=== PATIENT | female | born 1950 | race Caucasian/White ===

== ENCOUNTER 2016-09-14 08:23 | Day surgery (SDC) | payer MEDICAID ==
[~2016-09-14 08:23] MED LIST: Metoclopramide 10 MG/2 ML SDV IV PRN; Sodium Chloride 0.9% 1,000 ML IV SCH; Sodium Chloride 0.9% 10 ML Syringe FLUSH PRN
[2016-09-14] MEDS ORDERED: Propofol 200 MG/20 ML SDV ONE (12:00)
--- NOTE | 2016-09-14 13:08 | OR ---
DATE OF OPERATION: 09/14/2016 PREOPERATIVE DIAGNOSES: Surveillance colonoscopy, prior history of polyps. POSTOPERATIVE DIAGNOSIS: Normal colonoscopy. OPERATION: Surveillance colonoscopy, prior history of polyps, and increased risk of colon cancer. COMPLICATIONS: None. DRAINS: None. SPECIMENS: None. ESTIMATED BLOOD LOSS: Zero. ANESTHESIA: General propofol anesthesia. INDICATION: Ms. Scruggs is a 66-year-old female who had a previous colonoscopy approximately 3 years ago. She does have a family history of colon cancer. Previous colonoscopy did show polyps. The above-mentioned procedure was explained. The risks, benefits, and complications were explained. The patient understood and agreed, and she was brought to the operating room. DESCRIPTION OF PROCEDURE: The patient was brought to the operating room and placed in a left lateral decubitus position on the operating room table. Satisfactory general propofol anesthesia was administered. We began by performing a rectal examination, which revealed no significant findings externally, and we then introduced the endoscope by finger introduction into the rectum and subsequently advanced this to the level of the cecum. The cecal strap and ileocecal valve as well as the appendiceal orifice were identified to confirm the cecum. It is of note, the patient did have a difficult passage of the colonoscope due to excessive looping most probably around the sigmoid region. This required manipulation on the bed both on her back and right and left side down with counterpressure applied. We then evaluated the colon on withdrawal. There were no polyps, no neoplastic growths, no diverticula or telangiectasias. The colon was otherwise unremarkable. Next, we performed a retroflexion maneuver in the rectum, which revealed likely grade 1 internal hemorrhoids. The colon was decompressed and the endoscope was withdrawn. The patient tolerated the procedure well. There were no complications. Instrument count was correct. The patient was awoken in the OR and taken to the PACU for recovery. ALLYSON/YASMEEN /[id number]
[2016-09-14 14:53] VITALS: BP 149/53
--- NOTE | 2016-09-14 15:59 | CR ---
Date of Service: 09/14/16 Clinical Data: R/O free air/perforation ABDOMEN, SUPINE AND UPRIGHT There are gas-filled distended loops of small bowel throughout the abdomen and pelvis. There is also gas throughout the colon and the right colon appears moderately distended. These findings are consistent with the history of colonoscopy. I do not see any free air. [id number] [facility]
--- NOTE | 2016-09-14 16:02 | CR ---
Date of Service: 09/14/16 Clinical Data: checking for free air, R/O perforation PA CHEST Patient has taken a poor inspiration. The heart size is within normal limits. There are mild interstitial changes throughout both lungs. There are mild atelectatic changes in both lung bases. The lungs are otherwise clear. No pneumothorax. No pleural effusion. No free air below the hemidiaphragms. [id number] [facility]TD[facility]
== END 2016-09-14 14:55 | disposition home or self-care (01) ==
LOC: LB.SDS 08:23
PROVIDERS: ATTEND Surgery
DX: Z12.11 Encounter for screening for malignant neoplasm of colon (principal)
CPT/HCPCS: 45378; 71010; 74020; J2704; J2765; J7040; J7050

== ENCOUNTER 2018-09-15 11:53 | Observation (INO) | payer MEDICARE ==
[2018-09-15] MEDS ORDERED: Ondansetron 4 MG/2 ML SDV IVPUSH ONE (11:57)
[2018-09-15] MEDS ORDERED: Ondansetron 4 MG/2 ML SDV ONE (12:12)
--- NOTE | 2018-09-15 13:02 | CT ---
DATE OF SERVICE: 09/15/2018 CLINICAL DATA: Abdominal Pain Unenhanced abdomen and pelvic CT: Multislice acquisition through the abdomen and pelvis without IV or oral contrast was performed. Comparison is made to a prior exam dated 12/02/2015. The lung bases are clear. The heart size is normal. There is a small hiatal hernia. The liver is normal sized homogeneous attenuation. The patient is status post cholecystectomy. There is a small amount of fluid adjacent to the liver. There is also a very small amount of fluid within the pelvis. The spleen appears normal. The pancreas appears normal. The right and left adrenals appear normal. The right and left kidneys appear normal. No nephrocalcinosis or nephrolithiasis. No hydronephrosis or hydroureter. There is a small amount of fluid within the bladder. It appears normal. There are multiple fluid-filled loops of small bowel throughout the mid and lower abdomen and pelvis with scattered air-fluid levels. They are not distended. Enteritis is suspected. I cannot completely exclude a developing ileus or obstruction and follow up imaging is recommended if clinically indicated. No evidence of appendicitis. There is mild mural thickening within the transverse, descending, and sigmoid colon. This is probably related to nondistention. Colitis should be considered. No free air. No adenopathy. No aortic aneurysm. Impression: Abnormal exam. See above. MTDD
[2018-09-15] MEDS ORDERED: metroNIDAZOLE 500 MG Tab PO SCH (13:45)
[2018-09-15] MEDS ORDERED: Ciprofloxacin 500 MG Tab PO SCH (13:45)
--- NOTE | 2018-09-15 13:46 | EDM.PDOC ---
ED HPI GENERAL MEDICAL PROBLEM - General Chief Complaint: General Stated Complaint: ABD PAIN Time Seen by Provider: 09/15/18 11:53 Source of Information: Reports: Patient History Limitations: Reports: No Limitations - History of Present Illness INITIAL COMMENTS - FREE TEXT/NARRATIVE: This is a 68yo F here for acute abdominal pain and discomfort. She has had the worsening pain throughout the night with vomitting and wretching. She had diarrhea on Saturday and has not had a BM since but feels like she has to go. She has not been able to drink or eat anything for the past few days. Onset: Sudden Duration: Day(s): Location: Reports: Generalized Severity: Moderate Improves with: Reports: None Worsens with: Reports: Eating, Other, Movement Middle Abdominal Pain Score (Numeric/FACES): 8 - Related Data Allergies Allergy/AdvReac Type Severity Reaction Status Date / Time No Known Allergies Allergy Verified 09/15/18 12:12 Home Meds: Home Meds Lovastatin [Mevacor] 1 tab PO DAILY 12/02/15 [History] Sertraline HCl 1 tab PO DAILY 12/02/15 [History] Past Medical History HEENT History: Reports: Impaired Vision Cardiovascular History: Reports: Heart Murmur, High Cholesterol [employer] History: Reports: Musculoskeletal History: Reports: Osteoporosis Psychiatric History: Reports: Anxiety, Depression - Infectious Disease History Infectious Disease History: Reports: Chicken Pox, Influenza, Measles, Mumps - Past Surgical History GI Surgical History: Reports: Cholecystectomy, Colonoscopy Female Surgical History: Reports: Section Social & Family History - Family History Family Medical History: Noncontributory Oncologic: Reports: Breast, Colon - Tobacco Use Smoking Status *Q: Never Smoker Second Hand Smoke Exposure: No - Caffeine Use Caffeine Use: Reports: Coffee, Tea - Recreational Drug Use Recreational Drug Use: No ED ROS GENERAL - Review of Systems Review Of Systems: ROS reveals no pertinent complaints other than HPI. ED EXAM, GENERAL - Physical Exam Exam: See Below Exam Limited By: No Limitations General Appearance: Alert, WD/WN, Moderate Distress Eye Exam: Bilateral Eye: EOMI, PERRL Ears: Normal External Exam Nose: Normal Inspection Throat/Mouth: Normal Inspection Head: Atraumatic, Normocephalic Neck: Normal Inspection Respiratory/Chest: No Respiratory Distress Cardiovascular: Normal Peripheral Pulses GI/Abdominal: No Mass, Tender Back Exam: Normal Inspection Extremities: Normal Inspection Course - Vital Signs Last Recorded V/S: Last Vital Signs Temp 36.8 C 09/15/18 12:14 Pulse 74 09/15/18 12:14 Resp 20 09/15/18 12:14 BP 151/72 H 09/15/18 12:14 Pulse Ox 99 09/15/18 12:14 - Orders/Labs/Meds Orders: Active Orders 24 hr Category Date Time Status Patient Status [ADT] Routine ADT 09/15/18 13:38 Ordered Ambulate [RC] PER UNIT ROUTINE Care 09/15/18 13:38 Ordered EKG Documentation Completion [RC] ASDIRECTED Care 09/15/18 11:57 Active Oxygen Therapy [RC] PRN Care 09/15/18 13:38 Ordered Up With Assistance [RC] ASDIRECTED Care 09/15/18 13:38 Ordered Vital Signs [RC] Q4H Care 09/15/18 13:38 Ordered Nothing per Oral Now Diet [DIET] Diet 09/15/18 Dinner Ordered Ciprofloxacin [Ciprofloxacin HCl] Med 09/15/18 13:45 Ordered 500 mg PO BID metroNIDAZOLE [Flagyl] Med 09/15/18 13:45 Ordered 500 mg PO Q8H Labs: Laboratory Tests 09/15/18 09/15/18 Range/Units 12:11 12:11 WBC 10.1 D (4.0-11.0) K/uL RBC 5.39 (3.80-5.80) M/uL Hgb 15.6 (11.5-16.5) g/dL Hct 45.4 (37.0-47.0) % MCV 84 (76-96) fL MCH 28.9 (27.0-32.0) pg MCHC 34.4 (31.0-35.0) g/dL RDW 14.5 (11.0-16.0) % Plt Count 300 D (150-500) K/uL MPV 10.5 H (6.0-10.0) fL Neut % (Auto) 88.5 H (45.0-70.0) % Lymph % (Auto) 8.0 L (20.0-40.0) % [place] % (Auto) 3.1 (3.0-10.0) % Eos % (Auto) 0.2 L (1.0-5.0) % Baso % (Auto) 0.2 (0.0-0.5) % Neut # (Auto) 8.93 H (2.00-7.50) K/uL Lymph # (Auto) 0.81 L (1.50-4.00) K/uL [place] # (Auto) 0.31 (0.20-0.80) K/uL Eos # (Auto) 0.02 L (0.04-0.40) K/uL Baso # (Auto) 0.02 (0.02-0.10) K/uL Sodium 142 (136-145) mmol/L Potassium 4.1 (3.5-5.1) mmol/L Chloride 104 (98-107) mmol/L Carbon Dioxide 28.4 (21.0-32.0) mmol/L Anion Gap 13.7 (5.0-15.0) mmol/L BUN 14 (8-26) mg/dL Creatinine 0.92 (0.55-1.02) mg/dL Est Cr Clr Drug Dosing TNP Estimated GFR (MDRD) > 60 (>60) MLS/MIN BUN/Creatinine Ratio 15.2 (6-25) Glucose 134 H D (74-100) mg/dL Calcium 8.7 (8.5-10.1) mg/dL Total Bilirubin 0.7 (0.0-1.0) mg/dL AST 25 (15-37) U/L ALT 26 (12-78) U/L Alkaline Phosphatase 67 (46-116) U/L Troponin I < 0.017 (0.000-0.060) ng/mL Total Protein 7.7 (6.4-8.2) g/dL Albumin 3.5 (3.4-5.0) g/dL Globulin 4.2 (2.2-4.2) g/dL Albumin/Globulin Ratio 0.8 (0.8-2.0) Lipase 191 (73-393) U/L TSH, Ultra Sensitive 1.620 (0.358-3.740) uIU/mL Meds: Medications Discontinued Medications Generic Name Dose Route Start Last Admin Trade Name Freq PRN Reason Stop Dose Admin Ondansetron HCl 8 mg 09/15/18 11:57 09/15/18 12:08 Zofran IVPUSH 09/15/18 11:58 8 mg ONETIME ONE Administration Ondansetron HCl Confirm 09/15/18 12:12 09/15/18 12:30 Zofran Administered 09/15/18 12:13 Not Given Dose 8 mg .ROUTE .STK-MED ONE Departure - Departure Time of Disposition: 13:15 Disposition: Refer to Observation Clinical Impression: Gastroenteritis and colitis, viral, Enteritis, Dehydration - Discharge Information Referrals: PCP,None [Primary Care Provider] - - Problem List & Annotations (1) Dehydration SNOMED Code(s): 69435365 Code(s): E86.0 - DEHYDRATION Status: Acute Priority: High Current Visit : Yes (2) Enteritis SNOMED Code(s): 52172470 Code(s): K52.9 - NONINFECTIVE GASTROENTERITIS AND COLITIS, UNSPECIFIED Status: Acute Priority: High Current Visit: Yes (3) Gastroenteritis and colitis, viral SNOMED Code(s): 210265331 Code(s): A08.4 - VIRAL INTESTINAL INFECTION, UNSPECIFIED Status: Suspected Priority: High Current Visit: Yes - Problem List Review Problem List Initiated/Reviewed/Updated: Yes - My Orders Last 24 Hours: My Active Orders 09/15/18 11:57 EKG Documentation Completion [RC] ASDIRECTED 09/15/18 13:38 Patient Status [ADT] Routine Ambulate [RC] PER UNIT ROUTINE Oxygen Therapy [RC] PRN Up With Assistance [RC] ASDIRECTED Vital Signs [RC] Q4H 09/15/18 13:45 Ciprofloxacin [Ciprofloxacin HCl] 500 mg PO BID metroNIDAZOLE [Flagyl] 500 mg PO Q8H 09/15/18 Dinner Nothing per Oral Now Diet [DIET] - Assessment/Plan Last 24 Hours: My Active Orders 09/15/18 11:57 EKG Documentation Completion [RC] ASDIRECTED 09/15/18 13:38 Patient Status [ADT] Routine Ambulate [RC] PER UNIT ROUTINE Oxygen Therapy [RC] PRN Up With Assistance [RC] ASDIRECTED Vital Signs [RC] Q4H 09/15/18 13:45 Ciprofloxacin [Ciprofloxacin HCl] 500 mg PO BID metroNIDAZOLE [Flagyl] 500 mg PO Q8H 09/15/18 Dinner Nothing per Oral Now Diet [DIET] Plan: Counseled on suspected viral gastroenteritis but possible complications with severe abdominal pain that is intractable. Discussed refer to observation for monitoring, hydration and antibiotics due to possible other bacterial enteritis. Patient labs ordered for am and recheck/exam as needed.
[2018-09-15] MEDS ORDERED: metroNIDAZOLE/Normal Saline 100 ML ONE (15:03)
[2018-09-15] MEDS: metroNIDAZOLE/Normal Saline 500 MG in Premix Bag 1 BAG IV SCH ×2 (15:08→23:00)
[2018-09-15] MEDS: Ketorolac 60 MG/2 ML SDV IVPUSH SCH ×2 (17:20→21:39)
[2018-09-15] MEDS: Ondansetron 4 MG/2 ML SDV IVPUSH PRN ×2 (17:21→21:40)
[2018-09-15] MEDS: Sodium Chloride 0.9% 1,000 ML IV SCH (18:26)
[2018-09-15] MEDS: Ciprofloxacin in D5W 400 MG in Premix Bag 1 BAG IV SCH ×2 (20:00)
[2018-09-15] MEDS ORDERED: Ciprofloxacin in D5W 200 ML ONE (20:28)
[2018-09-16] MEDS ORDERED: metroNIDAZOLE/Normal Saline 100 ML ONE ×3 (03:22→22:52)
[2018-09-16] MEDS: Sodium Chloride 0.9% 1,000 ML IV SCH ×2 (03:52→14:48)
[2018-09-16] MEDS: Ketorolac 60 MG/2 ML SDV IVPUSH SCH ×4 (05:50→23:02)
[2018-09-16] MEDS: metroNIDAZOLE/Normal Saline 500 MG in Premix Bag 1 BAG IV SCH ×3 (06:27→23:00)
[2018-09-16] MEDS ORDERED: Ciprofloxacin in D5W 200 ML ONE ×2 (07:38→19:34)
[2018-09-16] MEDS: Ciprofloxacin in D5W 400 MG in Premix Bag 1 BAG IV SCH ×4 (07:44→20:16)
[2018-09-16] MEDS ORDERED: Sertraline 50 MG Tab PO SCH ×2 (08:00→20:00)
--- NOTE | 2018-09-16 11:04 | PCM.PN ---
- General Info Date of Service: 09/16/18 Subjective Update: Patient has good improvement. Resolving abdominal pain and slightly increasing appetite. Denies any fever or chills and improved symptoms. No other concerns. Functional Status: Reports: Pain Controlled, Ambulating - Review of Systems HEENT: Reports: No Symptoms Pulmonary: Reports: No Symptoms Cardiovascular: Reports: No Symptoms Gastrointestinal: Reports: Abdominal Pain, Nausea Genitourinary: Reports: No Symptoms Musculoskeletal: Reports: No Symptoms Skin: Reports: No Symptoms Neurological: Reports: No Symptoms - Patient Data Vitals - Most Recent: Last Vital Signs Temp 36.6 C 09/15/18 21:38 Pulse 94 09/15/18 21:38 Resp 16 09/16/18 05:00 BP 134/65 09/15/18 21:38 Pulse Ox 98 09/15/18 21:38 Weight - Most Recent: 103.419 kg I&O - Last 24 Hours: Intake & Output 09/15/18 09/16/18 09/16/18 22:59 06:59 14:59 Intake Total 0 Balance 0 Lab Results Last 24 Hours: Laboratory Results - last 24 hr 09/15/18 09/15/18 09/16/18 Range/Units 12:11 12:11 07:15 WBC 10.1 D 7.2 D (4.0-11.0) K/uL RBC 5.39 4.09 (3.80-5.80) M/uL Hgb 15.6 11.8 D (11.5-16.5) g/dL Hct 45.4 36.2 L D (37.0-47.0) % MCV 84 89 (76-96) fL MCH 28.9 28.9 (27.0-32.0) pg MCHC 34.4 32.6 (31.0-35.0) g/dL RDW 14.5 13.7 (11.0-16.0) % Plt Count 300 D 198 D (150-500) K/uL MPV 10.5 H 10.0 (6.0-10.0) fL Neut % (Auto) 88.5 H 68.1 (45.0-70.0) % Lymph % (Auto) 8.0 L 24.0 (20.0-40.0) % [place] % (Auto) 3.1 7.0 (3.0-10.0) % Eos % (Auto) 0.2 L 0.8 L (1.0-5.0) % Baso % (Auto) 0.2 0.1 (0.0-0.5) % Neut # (Auto) 8.93 H 4.89 (2.00-7.50) K/uL Lymph # (Auto) 0.81 L 1.72 (1.50-4.00) K/uL [place] # (Auto) 0.31 0.50 (0.20-0.80) K/uL Eos # (Auto) 0.02 L 0.06 (0.04-0.40) K/uL Baso # (Auto) 0.02 0.01 L (0.02-0.10) K/uL Sodium 142 (136-145) mmol/L Potassium 4.1 (3.5-5.1) mmol/L Chloride 104 (98-107) mmol/L Carbon Dioxide 28.4 (21.0-32.0) mmol/L Anion Gap 13.7 (5.0-15.0) mmol/L BUN 14 (8-26) mg/dL Creatinine 0.92 (0.55-1.02) mg/dL Est Cr Clr Drug Dosing TNP Estimated GFR (MDRD) > 60 (>60) MLS/MIN BUN/Creatinine Ratio 15.2 (6-25) Glucose 134 H D (74-100) mg/dL Calcium 8.7 (8.5-10.1) mg/dL Total Bilirubin 0.7 (0.0-1.0) mg/dL AST 25 (15-37) U/L ALT 26 (12-78) U/L Alkaline Phosphatase 67 (46-116) U/L Troponin I < 0.017 (0.000-0.060) ng/mL Total Protein 7.7 (6.4-8.2) g/dL Albumin 3.5 (3.4-5.0) g/dL Globulin 4.2 (2.2-4.2) g/dL Albumin/Globulin Ratio 0.8 (0.8-2.0) Lipase 191 (73-393) U/L TSH, Ultra Sensitive 1.620 (0.358-3.740) uIU/mL 05/14/19 Range/Units 07:15 WBC (4.0-11.0) K/uL RBC (3.80-5.80) M/uL Hgb (11.5-16.5) g/dL Hct (37.0-47.0) % MCV (76-96) fL MCH (27.0-32.0) pg MCHC (31.0-35.0) g/dL RDW (11.0-16.0) % Plt Count (150-500) K/uL MPV (6.0-10.0) fL Neut % (Auto) (45.0-70.0) % Lymph % (Auto) (20.0-40.0) % [place] % (Auto) (3.0-10.0) % Eos % (Auto) (1.0-5.0) % Baso % (Auto) (0.0-0.5) % Neut # (Auto) (2.00-7.50) K/uL Lymph # (Auto) (1.50-4.00) K/uL [place] # (Auto) (0.20-0.80) K/uL Eos # (Auto) (0.04-0.40) K/uL Baso # (Auto) (0.02-0.10) K/uL Sodium 144 (136-145) mmol/L Potassium 3.7 (3.5-5.1) mmol/L Chloride 108 H (98-107) mmol/L Carbon Dioxide 26.3 (21.0-32.0) mmol/L Anion Gap 13.4 (5.0-15.0) mmol/L BUN 14 (8-26) mg/dL Creatinine 0.87 (0.55-1.02) mg/dL Est Cr Clr Drug Dosing TNP Estimated GFR (MDRD) > 60 (>60) MLS/MIN BUN/Creatinine Ratio 16.1 (6-25) Glucose 102 H (74-100) mg/dL Calcium 7.4 L (8.5-10.1) mg/dL Total Bilirubin 0.5 (0.0-1.0) mg/dL AST 20 (15-37) U/L ALT 20 (12-78) U/L Alkaline Phosphatase 48 (46-116) U/L Troponin I (0.000-0.060) ng/mL Total Protein 6.0 L (6.4-8.2) g/dL Albumin 2.7 L (3.4-5.0) g/dL Globulin 3.3 (2.2-4.2) g/dL Albumin/Globulin Ratio 0.8 (0.8-2.0) Lipase (73-393) U/L TSH, Ultra Sensitive (0.358-3.740) uIU/mL Med Orders - Current: Current Medications Ciprofloxacin/Dextrose 400 mg/ (Premix) 200 mls @ 200 mls/hr IV Q12HR [facility] Stop: 09/25/18 08:59 Last Admin: 09/16/18 07:44 Dose: 200 mls/hr Metronidazole 500 mg/ Premix 100 mls @ 100 mls/hr IV Q8H [facility] Stop: 09/25/18 07:29 Last Admin: 09/16/18 06:27 Dose: 100 mls/hr Sodium Chloride (Normal Saline) 1,000 mls @ 125 mls/hr IV ASDIRECTED [facility] Last Admin: 09/16/18 03:52 Dose: 125 mls/hr Ketorolac Tromethamine (Toradol) 15 mg IVPUSH Q6H [facility] Stop: 09/20/18 15:57 Last Admin: 09/16/18 05:50 Dose: Not Given Lovastatin (Mevacor) 40 mg PO DAILY [facility] Ondansetron HCl (Zofran) 4 mg IVPUSH Q4H PRN PRN Reason: Nausea/Vomiting Last Admin: 09/15/18 21:40 Dose: 4 mg Sertraline HCl (Zoloft) 50 mg PO DAILY [facility] Discontinued Medications Ciprofloxacin (Ciprofloxacin Hcl) 500 mg PO BID [facility] Stop: 09/24/18 20:01 Last Admin: 09/15/18 14:57 Dose: Not Given Metronidazole (Flagyl 500 Mg In Ns 100 Ml) Confirm Administered Dose 100 mls @ as directed .ROUTE .STK-MED ONE Stop: 09/15/18 15:04 Last Admin: 09/15/18 15:09 Dose: Not Given Ciprofloxacin/Dextrose (Cipro In D5w 400 Mg/200 Ml) Confirm Administered Dose 200 mls @ as directed .ROUTE .STK-[facility] ONE Stop: 09/15/18 20:29 Last Admin: 09/15/18 20:00 Dose: 220 mls/hr Metronidazole (Flagyl 500 Mg In Ns 100 Ml) Confirm Administered Dose 100 mls @ as directed .ROUTE .STK-MED ONE Stop: 09/16/18 03:23 Last Admin: 09/16/18 03:49 Dose: Not Given Ciprofloxacin/Dextrose (Cipro In D5w 400 Mg/200 Ml) Confirm Administered Dose 200 mls @ as directed .ROUTE .STK-MED ONE Stop: 09/16/18 07:39 Last Admin: 09/16/18 07:43 Dose: Not Given Metronidazole (Flagyl) 500 mg PO Q8H [facility] Stop: 09/25/18 05:46 Last Admin: 09/15/18 14:57 Dose: Not Given Ondansetron HCl (Zofran) 8 mg IVPUSH ONETIME ONE Stop: 09/15/18 11:58 Last Admin: 09/15/18 12:08 Dose: 8 mg Ondansetron HCl (Zofran) Confirm Administered Dose 8 mg .ROUTE .STK-MED ONE Stop: 09/15/18 12:13 Last Admin: 09/15/18 12:30 Dose: Not Given - Exam General: Alert, Oriented, Cooperative HEENT: Pupils Equal, Pupils Reactive, EOMI Neck: Supple Lungs: Clear to Auscultation, Normal Respiratory Effort Cardiovascular: Regular Rate, Regular Rhythm GI/Abdominal Exam: Normal Bowel Sounds, Soft, Non-Tender Extremities: Normal Inspection - Problem List & Annotations (1) Dehydration SNOMED Code(s): 49899234 Code(s): E86.0 - DEHYDRATION Status: Resolved Priority: High Current Visit: Yes (2) Enteritis SNOMED Code(s): 45453325 Code(s): K52.9 - NONINFECTIVE GASTROENTERITIS AND COLITIS, UNSPECIFIED Status: Acute Priority: High Current Visit: Yes (3) Gastroenteritis and colitis, viral SNOMED Code(s): 238377657 Code(s): A08.4 - VIRAL INTESTINAL INFECTION, UNSPECIFIED Status: Acute Priority: High Current Visit: Yes - Problem List Review Problem List Initiated/Reviewed/Updated: Yes - My Orders Last 24 Hours: My Active Orders 09/15/18 11:57 EKG Documentation Completion [RC] ASDIRECTED 09/15/18 13:38 Patient Status [ADT] Routine Ambulate [RC] PER UNIT ROUTINE Oxygen Therapy [RC] PRN Up With Assistance [RC] ASDIRECTED Vital Signs [RC] Q4H 09/15/18 14:30 metroNIDAZOLE/Normal Saline [Flagyl 500 MG in NS 100 ML] 500 mg Premix Bag 1 bag IV Q8H 09/15/18 15:56 Ondansetron [Zofran] 4 mg IVPUSH Q4H PRN 09/15/18 16:00 Ketorolac [Toradol] 15 mg IVPUSH Q6H 09/15/18 17:15 Sodium Chloride 0.9% [Normal Saline] 1,000 ml IV ASDIRECTED 09/15/18 20:00 Ciprofloxacin in D5W [Cipro in D5W 400 MG/200 ML] 400 mg Premix Bag 1 bag IV Q12HR 09/15/18 Dinner Nothing per Oral Now Diet [DIET] 09/16/18 08:00 Lovastatin [Mevacor] 40 mg PO DAILY Sertraline [Zoloft] 50 mg PO DAILY 09/17/18 05:11 CBC WITH AUTO DIFF [HEME] AM COMPREHENSIVE METABOLIC PN,CMP [CHEM] AM - Plan Plan:: Patient will continue current management and we will f/u in am for possible discharge planning if her pain resolves and symptoms resolve with improved appetite. Continue check of temp.
[2018-09-16] MEDS: Lactobacillus Acidophilus/Lactobacillus Sporogenes (Probiotic) Tab PO SCH ×2 (13:44→20:17)
[2018-09-17] MEDS: Sodium Chloride 0.9% 1,000 ML IV SCH (01:23)
[2018-09-17] MEDS: metroNIDAZOLE/Normal Saline 500 MG in Premix Bag 1 BAG IV SCH (06:20)
[2018-09-17] MEDS: Ketorolac 60 MG/2 ML SDV IVPUSH SCH (06:21)
[2018-09-17] MEDS: Ciprofloxacin in D5W 400 MG in Premix Bag 1 BAG IV SCH ×2 (08:05)
[2018-09-17 08:40] VITALS: BP 138/55
[2018-09-17] MEDS: Lactobacillus Acidophilus/Lactobacillus Sporogenes (Probiotic) Tab PO SCH (08:43)
--- NOTE | 2018-09-17 09:07 | PCM.DCSUM1 ---
Discharge Summary - Discharge Data Discharge Date: 09/17/18 Discharge Disposition: Home, Self-Care 01 Condition: Good - Discharge Diagnosis/Problem(s) (1) Dehydration SNOMED Code(s): 40819416 ICD Code: E86.0 - DEHYDRATION Status: Resolved Priority: High Current Visit: Yes (2) Enteritis SNOMED Code(s): 47972550 ICD Code: K52.9 - NONINFECTIVE GASTROENTERITIS AND COLITIS, UNSPECIFIED Status: Acute Priority: High Current Visit: Yes (3) Gastroenteritis and colitis, viral SNOMED Code(s): 695389109 ICD Code: A08.4 - VIRAL INTESTINAL INFECTION, UNSPECIFIED Status: Acute Priority: High Current Visit: Yes - Patient Instructions Diet: Usual Diet as Tolerated, GI Soft/Low Residue/Low Fiber Activity: As Tolerated Driving: May Drive Today Showering/Bathing: May Shower Notify Provider of: Fever, Increased Pain, Swelling and Redness, Drainage, Nausea and/or Vomiting - Discharge Plan Home Medications: Home Meds Lovastatin [Mevacor] 1 tab PO DAILY 12/02/15 [History] Sertraline HCl 1 tab PO DAILY 12/02/15 [History] Patient Handouts: Viral Gastroenteritis, Adult, [id number] Forms: ED Department Discharge Referrals: PCP,None [Primary Care Provider] - - Discharge Summary/Plan Comment DC Time >30 min.: Yes Discharge Summary/Plan Comment: Counseled on diet and slow advancement. Discussed supportive care and management of pain and resolution. Discussed close monitoring and f/u in ER as needed and f/u in clinic as routine and as needed. Patient to schedule f/u in 1- 2 wks. Discussed probiotics and d/c antibiotics and side effects. Rtc as needed. - Patient Data Vitals - Most Recent: Last Vital Signs Temp 36.8 C 09/17/18 08:39 Pulse 77 09/17/18 05:00 Resp 18 09/17/18 08:39 BP 138/55 L 09/17/18 08:39 Pulse Ox 98 09/17/18 08:39 Weight - Most Recent: 103.419 kg Med Orders - Current: Current Medications Ciprofloxacin/Dextrose 400 mg/ (Premix) 200 mls @ 200 mls/hr IV Q12HR [facility] Stop: 09/25/18 08:59 Last Admin: 09/17/18 08:05 Dose: Not Given Metronidazole 500 mg/ Premix 100 mls @ 100 mls/hr IV Q8H [facility] Stop: 09/25/18 07:29 Last Admin: 09/17/18 06:20 Dose: 100 mls/hr Sodium Chloride (Normal Saline) 1,000 mls @ 125 mls/hr IV ASDIRECTED [facility] Last Admin: 09/17/18 01:23 Dose: 125 mls/hr Ketorolac Tromethamine (Toradol) 15 mg IVPUSH Q6H [facility] Stop: 09/20/18 15:57 Last Admin: 09/17/18 06:21 Dose: Not Given Lactobacillus Acidophilus (Acidolphilus Extra Strength) 1 tab PO BID [facility] Last Admin: 09/17/18 08:43 Dose: Not Given Lovastatin (Mevacor) 40 mg PO BEDTIME [facility] Last Admin: 09/16/18 20:25 Dose: Not Given Ondansetron HCl (Zofran) 4 mg IVPUSH Q4H PRN PRN Reason: Nausea/Vomiting Last Admin: 09/15/18 21:40 Dose: 4 mg Sertraline HCl (Zoloft) 50 mg PO BEDTIME [facility] Last Admin: 09/16/18 20:18 Dose: 50 mg Discontinued Medications Ciprofloxacin (Ciprofloxacin Hcl) 500 mg PO BID [facility] Stop: 09/24/18 20:01 Last Admin: 09/15/18 14:57 Dose: Not Given Metronidazole (Flagyl 500 Mg In Ns 100 Ml) Confirm Administered Dose 100 mls @ as directed .ROUTE .ST-MED ONE Stop: 09/15/18 15:04 Last Admin: 09/15/18 15:09 Dose: Not Given Ciprofloxacin/Dextrose (Cipro In D5w 400 Mg/200 Ml) Confirm Administered Dose 200 mls @ as directed .ROUTE .ST-MED ONE Stop: 09/15/18 20:29 Last Admin: 09/15/18 20:00 Dose: 220 mls/hr Metronidazole (Flagyl 500 Mg In Ns 100 Ml) Confirm Administered Dose 100 mls @ as directed .ROUTE .[facility] ONE Stop: 09/16/18 03:23 Last Admin: 09/16/18 03:49 Dose: Not Given Ciprofloxacin/Dextrose (Cipro In D5w 400 Mg/200 Ml) Confirm Administered Dose 200 mls @ as directed .ROUTE .ST[facility]-MED ONE Stop: 09/16/18 07:39 Last Admin: 09/16/18 07:43 Dose: Not Given Metronidazole (Flagyl 500 Mg In Ns 100 Ml) Confirm Administered Dose 100 mls @ as directed .ROUTE .[facility] ONE Stop: 09/16/18 14:32 Last Admin: 09/16/18 14:34 Dose: Not Given Ciprofloxacin/Dextrose (Cipro In D5w 400 Mg/200 Ml) Confirm Administered Dose 200 mls @ as directed .ROUTE .[facility] ONE Stop: 09/16/18 19:35 Last Admin: 09/16/18 20:15 Dose: Not Given Metronidazole (Flagyl 500 Mg In Ns 100 Ml) Confirm Administered Dose 100 mls @ as directed .ROUTE .[facility] ONE Stop: 09/16/18 22:53 Last Admin: 09/16/18 23:04 Dose: Not Given Lovastatin (Mevacor) 40 mg PO DAILY [facility] Metronidazole (Flagyl) 500 mg PO Q8H [facility] Stop: 09/25/18 05:46 Last Admin: 09/15/18 14:57 Dose: Not Given Ondansetron HCl (Zofran) 8 mg IVPUSH ONETIME ONE Stop: 09/15/18 11:58 Last Admin: 09/15/18 12:08 Dose: 8 mg Ondansetron HCl (Zofran) Confirm Administered Dose 8 mg .ROUTE .[facility]-MED ONE Stop: 09/15/18 12:13 Last Admin: 09/15/18 12:30 Dose: Not Given Sertraline HCl (Zoloft) 50 mg PO DAILY [facility]
== END 2018-09-17 08:50 | disposition home or self-care (01) ==
LOC: LB.ED 11:53 → LB.MS 13:38
PROVIDERS: ADMIT Family Medicine; ATTEND Family Medicine
DX: A08.4 Viral intestinal infection, unspecified (principal); K52.9 Noninfective gastroenteritis and colitis, unspecified; E86.0 Dehydration; E78.00 Pure hypercholesterolemia, unspecified; F41.9 Anxiety disorder, unspecified; F32.9 Major depressive disorder, single episode, unspecified; Z79.899 Other long term (current) drug therapy
CPT/HCPCS: 36415; 74176; 80053; 83690; 84443; 84484; 85025; 93005; 96365; 96375; 96376; 99285; A9270; G0378; J0744; J1885; J2405; J3490; J7030; 96374

== ENCOUNTER 2021-05-01 00:44 | Emergency (ER) | payer MEDICARE ==
[2021-05-01] MEDS ORDERED: Ketorolac 30 MG/ML SDV IVPUSH ONE (01:10)
[2021-05-01] MEDS ORDERED: Ondansetron 4 MG/2 ML SDV IVPUSH ONE (01:11)
[2021-05-01] MEDS ORDERED: Ondansetron 4 MG/2 ML SDV ONE (01:15)
[2021-05-01] MEDS ORDERED: Ketorolac 30 MG/ML SDV ONE (01:24)
[2021-05-01 01:30] VITALS: BP 129/43; PULSE 67
[2021-05-01] MEDS ORDERED: Sodium Chloride 0.9% 1,000 ML IV ONE (01:40)
--- NOTE | 2021-05-01 01:42 | EDM.PDOC ---
ED HPI GENERAL MEDICAL PROBLEM - General Chief Complaint: Genitourinary Problem Stated Complaint: POSSIBLE KIDNEY STONE Time Seen by Provider: 05/01/21 01:20 Source of Information: Reports: Patient, RN Notes Reviewed History Limitations: Reports: No Limitations - History of Present Illness INITIAL COMMENTS - FREE TEXT/NARRATIVE: This patient presents to the emergency department for evaluation of back pain. She states she has pain in her right lower back that began at approximately 8 PM last night. She states that it is gotten worse and feels much like a kidney stone she had a couple of years ago. She has not had a fever with this. She has had some nausea with some vomiting episodes. She is denying dysuria. She denies chest pain, headache, difficulty breathing. 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: Musculoskeletal History: Reports: Osteoporosis Psychiatric History: Reports: Anxiety, Depression - Infectious Disease History Infectious Disease History: Reports: Chicken Pox, Influenza, Measles, Mumps - Past Surgical History GI Surgical History: Reports: Cholecystectomy, Colonoscopy Female Surgical History: Reports: Section Social & Family History - Family History Family Medical History: No Pertinent Family History Oncologic: Reports: Breast, Colon - Caffeine Use Caffeine Use: Reports: Coffee, Tea - Recreational Drug Use Recreational Drug Use: No ED ROS GENERAL - Review of Systems Review Of Systems: Comprehensive ROS is negative, except as noted in HPI. ED EXAM, RENAL/ - Physical Exam Exam: See Below Exam Limited By: No Limitations General Appearance: Alert, Moderate Distress (Related to pain) Eye Exam: Bilateral Eye: PERRL Ears: Normal External Exam Nose: Normal Inspection Head: Atraumatic, Normocephalic Neck: Normal Inspection, Full Range of Motion Respiratory/Chest: No Respiratory Distress, Lungs Clear, Normal Breath Sounds, No Accessory Muscle Use Cardiovascular: Regular Rate, Rhythm GI/Abdominal: Soft, Non-Tender, No Distention Back Exam: Normal Inspection, CVA Tenderness (R). No: CVA Tenderness (L) Extremities: Normal Inspection Neurological: Alert, Oriented, Normal Cognition Psychiatric: Normal Affect, Normal Mood Skin Exam: Warm, Dry, Intact Course - Vital Signs Last Recorded V/S: Last Vital Signs Temp 36.6 C 05/01/21 01:30 Pulse 67 05/01/21 01:30 Resp 16 05/01/21 01:30 BP 129/43 L 05/01/21 01:30 Pulse Ox 96 05/01/21 01:30 - Orders/Labs/Meds Orders: Active Orders 24 hr Category Date Time Status Abdomen Pelvis wo Cont [CT] Stat Exams 05/01/21 01:15 Taken Sodium Chloride 0.9% [Normal Saline] 1,000 ml Med 05/01/21 01:40 Active IV .BOLUS Medication Orders Sodium Chloride (Normal Saline) 1,000 mls @ 999 mls/hr IV .BOLUS ONE Stop: 05/01/21 02:40 Last Admin: 05/01/21 01:40 Dose: 999 mls/hr Documented by: MALISSA Labs: Laboratory Tests 05/01/21 Range/Units 01:02 Urine Color Yellow Urine Appearance Cloudy (CLEAR) Urine pH 5.0 (5.0-8.0) Ur Specific [place] 1.020 (1.003-1.030) Urine Protein 30 H (NEGATIVE) mg/dL Urine Glucose (UA) Negative (NEGATIVE) mg/dL Urine Ketones Trace H (NEGATIVE) mg/dL Urine Occult Blood Moderate H (NEGATIVE) Urine Nitrite Positive H (NEGATIVE) Urine Bilirubin Negative (NEGATIVE) Urine Urobilinogen 0.2 (0.2-1.0) E.U./dL Ur Leukocyte Esterase Small H (NEGATIVE) Urine RBC 20-30 H /HPF Urine WBC >100 H /HPF Urine WBC Clumps Moderate /HPF Urine Bacteria Moderate H /HPF Meds: Medications Generic Name Dose Route Start Last Admin Trade Name Freq PRN Reason Stop Dose Admin Sodium Chloride 1,000 mls @ 999 mls/hr 05/01/21 01:40 05/01/21 01:40 Normal Saline IV 05/01/21 02:40 999 mls/hr .BOLUS ONE Administration Discontinued Medications Generic Name Dose Route Start Last Admin Trade Name Tank PRN Reason Stop Dose Admin Ketorolac Tromethamine 30 mg 05/01/21 01:10 05/01/21 01:19 Ketorolac 30 Mg/Ml Sdv IVPUSH 05/01/21 01:11 30 mg ONETIME ONE Administration Ketorolac Tromethamine Confirm 05/01/21 01:24 05/01/21 01:18 Ketorolac 30 Mg/Ml Sdv Administered 05/01/21 01:25 Not Given Dose 30 mg .ROUTE .STK-MED ONE Ondansetron HCl Confirm 05/01/21 01:15 05/01/21 01:17 Ondansetron 4 Mg/2 Ml Sdv Administered 05/01/21 01:16 Not Given Dose 4 mg .ROUTE .STK-MED ONE Ondansetron HCl 4 mg 05/01/21 01:11 05/01/21 01:15 Ondansetron 4 Mg/2 Ml Sdv IVPUSH 05/01/21 01:12 4 mg ONETIME ONE Administration Tamsulosin HCl 0.4 mg 05/01/21 02:27 05/01/21 02:31 Tamsulosin 0.4 Mg Cap.Er PO 05/01/21 02:28 0.4 mg ONETIME ONE Administration - Re-Assessments/Exams Free Text/Narrative Re-Assessment/Exam: This patient presents to the emergency department with left flank pain. Differential diagnosis includes your ureteral urolithiasis, UTI, pyelonephritis, appendicitis, colitis, diverticulitis, volvulus. History and clinical findings today are most consistent with ureterolithiasis. This was confirmed with CT. She does also have a urinary tract infection today. Her pain was controlled in the emergency department with Toradol and her nausea was resolved with Zofran. She was given some IV fluid for comfort. She is hemodynamically stable in the ER and her plan is for management at home with Flomax, Percocet for severe pain, and an antibiotic for her urinary tract infection she was instructed to increase her fluid intake and rest as well as applying warm packs to her left flank area. She should be rechecked in 2 to 3 days if she is not better, sooner if she is worse in any way. 05/01/21 02:36 Departure - Departure Time of Disposition: 02:30 Disposition: Refer to Observation Clinical Impression: Kidney calculi, UTI, Urinary tract infectious disease - Discharge Information *PRESCRIPTION DRUG MONITORING PROGRAM REVIEWED*: Not Applicable *COPY OF PRESCRIPTION DRUG MONITORING REPORT IN PATIENT CAITLIN: Not Applicable Instructions: Urinary Tract Infection, Adult, [id number] Referrals: PCP,None [Primary Care Provider] - Forms: ED Department Discharge Additional Instructions: 1) Take Flomax, 0.4 mg tablet once per day. You were given this in the ED at 2:30 am; take the next on at suppertime on Saturday then every day at suppertime. 2) Start the antibiotic, Bactrim and take this twice per day for 3 days (until the medication is gone). 3) Use the Percocet as needed for severe pain. You can have 1 tablet every 6 hours. 4) Apply warm packs to your back and drink lots of fluids. Make an appointment in the clinic in 2-3 days if you are not better, return sooner if you are worse in any way. Sepsis Event Note (ED) - Evaluation Sepsis Screening Result: No Definite Risk - Focused Exam Vital Signs: Vital Signs Temp Pulse Resp BP Pulse Ox 05/01/21 01:30 36.6 C 67 16 129/43 L 96 05/01/21 01:20 36.6 C 76 18 158/58 H 98 - My Orders Last 24 Hours: My Active Orders 05/01/21 01:15 Abdomen Pelvis wo Cont [CT] Stat 05/01/21 01:40 Sodium Chloride 0.9% [Normal Saline] 1,000 ml IV .BOLUS - Assessment/Plan Last 24 Hours: My Active Orders 05/01/21 01:15 Abdomen Pelvis wo Cont [CT] Stat 05/01/21 01:40 Sodium Chloride 0.9% [Normal Saline] 1,000 ml IV .BOLUS
[2021-05-01] MEDS ORDERED: Acetaminophen/oxyCODONE 325-5 MG Tab ONE (02:00)
[2021-05-01] MEDS ORDERED: Sulfamethoxazole/Trimethoprim 800-160 MG Tab ONE (02:00)
[2021-05-01] MEDS ORDERED: Tamsulosin 0.4 MG Cap.ER PO ONE (02:27)
--- NOTE | 2021-05-01 10:21 | CT ---
Date of Service: 05/01/21 Clinical Data: stone protocol UNENHANCED ABDOMEN AND PELVIC CT: Multislice acquisition through the abdomen and pelvis without IV or oral contrast was performed. Comparison was made to a prior exam dated 09/15/18. The lung bases are clear. The heart size is normal. The mild mural thickening within the distal esophagus. Esophagitis should be considered. There is a small hiatal hernia. The unenhanced liver appears normal. No focal hepatic lesions. The patient is status post cholecystectomy. The spleen appears normal. The pancreas appears normal. The right and left adrenals appear normal. There is a 4 mm distal ureteral calculus on the left located in the distal left ureter at the ureterovesical junction. There is hydronephrosis and hydroureter proximal to it consistent with obstruction. The left kidney is mildly swollen and there is perinephric fat stranding. There is also mild fat stranding adjacent to the left ureter. The findings are probably secondary to obstruction. Pyelonephritis should at least be considered. The right kidney and collecting system appear normal. There is a small amount of fluid within the bladder. It appears unremarkable. Uterus appears unremarkable. No evidence of appendicitis. There is a moderate amount of stool noted within the right colon. No free air. No free fluid. No dilated loops of bowel. No adenopathy. No aortic aneurysm. No other significant findings. IMPRESSION: 4 mm distal ureteral calculus located at the ureterovesical junction with proximal hydronephrosis and hydroureter consistent with obstruction. [id number] MTDD
== END 2021-05-01 02:46 | disposition home or self-care (01) ==
LOC: LB.ED 00:44
DX: N20.0 Calculus of kidney (principal); N39.0 Urinary tract infection, site not specified; E78.00 Pure hypercholesterolemia, unspecified; Z79.899 Other long term (current) drug therapy
CPT/HCPCS: 74176; 81001; 96374; 96375; 99284; A9270; J1885; J2405; J7030

== ENCOUNTER 2021-12-14 09:32 | Day surgery (SDC) | payer MEDICARE ==
[~2021-12-14 09:32] MED LIST changes: -Sodium Chloride 0.9% 1,000 ML IV SCH; -Sodium Chloride 0.9% 10 ML Syringe FLUSH PRN
[2021-12-14] MEDS: Sodium Chloride 0.9% 1,000 ML IV SCH (10:00)
[2021-12-14] MEDS ORDERED: Ondansetron 4 MG/2 ML SDV ONE (11:45)
[2021-12-14] MEDS ORDERED: Propofol 1,000 MG/100 ML SDV ONE (11:45)
[2021-12-14 11:57] VITALS: BP 191/71; PULSE 59
== END 2021-12-14 13:35 | disposition home or self-care (01) ==
LOC: LB.SDS 09:32
PROVIDERS: ATTEND Surgery
DX: R19.5 Other fecal abnormalities (principal); E78.5 Hyperlipidemia, unspecified; M85.80 Other specified disorders of bone density and structure, unspecified site; M45.9 Ankylosing spondylitis of unspecified sites in spine; Z80.0 Family history of malignant neoplasm of digestive organs; Z79.899 Other long term (current) drug therapy
CPT/HCPCS: J2405; J2704; J7030